=== PATIENT | female | born 1960 | race Caucasian/White ===

== ENCOUNTER 2016-08-01 05:58 | Emergency (ER) | payer BC ==
[2016-08-01] MEDS ORDERED: oxyCOD/ACETAMIN 5 MG/325 MG TABLET PO STA (07:08)
[2016-08-01] MEDS ORDERED: oxyCOD/ACETAMIN 5 MG/325 MG TABLET PO ONE (07:11)
--- NOTE | 2016-08-01 07:12 | CT Preliminary Report ---
Exam: CT Facial Bones W/O IMPRESSION: 1. No acute osseous abnormality. 2. Paranasal sinus disease without evidence of acute sinusitis. 3. Right periorbital soft tissue swelling. 4. Degenerative change of the visualized cervical spine. [facility] SITE ID: [id number]
--- NOTE | 2016-08-01 07:14 | CT Report ---
EXAM: CT MAXILLOFACIAL WITHOUT CONTRAST EXAM DATE: 08/01/2016 06:53 AM. CLINICAL HISTORY: Syncope, facial ecchymosis, swelling. COMPARISONS: None. TECHNIQUE: Thin-section axial images were acquired of the face without contrast. Post-processing: Cor onal and sagittal reformats. Other: None. In accordance with CT protocol optimization, one or more of the following dose reduction techniques w ere utilized for this exam: automated exposure control, adjustment of mA and/or KV based on patient s ize, or use of iterative reconstructive technique. FINDINGS: Bones: No fracture or bone lesion. Temporomandibular Joints: The temporomandibular joints are symmetric and normally located. Sinuses: Moderate mucosal thickening of the bilateral ethmoid and maxillary sinuses. Mild right and m oderate left sphenoid sinus mucosal thickening. No air-fluid levels. Other: Degenerative change of the visualized spine, most pronounced at C4-C5. 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 Right periorbital soft tissue swelling. Mastoid air cells ar e clear. IMPRESSION: 1. No acute osseous abnormality. 2. Paranasal sinus disease without evidence of acute sinusitis. 3. Right periorbital soft tissue swelling. 4. Degenerative change of the visualized cervical spine. [facility] Referring Provider Line: [phone] SITE ID: [id number]
[2016-08-01 07:18] VITALS: BP 140/80
--- NOTE | 2016-08-01 07:19 | ED Physician Documentation ---
PD HPI HEAD INJURY - Stated complaint Stated Complaint: FACIAL INJURIES FROM FALL - Chief complaint Chief Complaint: General - History obtained from History obtained from: Patient, Family - History of Present Illness Mechanism of head injury: Fell Where head injury occurred: Home Timing - onset: How many minutes ago (45) Location of injury: Right, Front Quality of pain: Pain, Aching Associated symptoms: LOC. No: Amnesia, Nausea / vomiting, Neck pain, Seizures Symptoms improve with: No: Rest Symptoms worsen with: Palpation, Movement Contributing factors: No: Anticoagulated, Intoxicated Similar symptoms before: Has not had sx before Recently seen: Not recently seen - Additional information Additional information: Patient is a 55 year old female with no significant past medical history who is presenting to the emergency department for syncope and facial injury. Patient states that she was lying in bed, and when she went to get up this morning she sat up quickly, passed out and fell unto her face. Family states that she was only out for less than a minute. Review of Systems Constitutional: denies: Fever, Myalgias Eyes: denies: Loss of vision, Photophobia Ears: denies: Ear pain, Drainage/discharge Nose: denies: Rhinorrhea / runny nose, Congestion Throat: denies: Dental pain / toothache, Sore throat Cardiac: denies: Chest pain / pressure Respiratory: denies: Cough GI: denies: Abdominal Pain, Nausea, Vomiting Skin: reports: Lesions, Abrasion (s) Musculoskeletal: denies: Neck pain, Back pain, Extremity pain, Joint pain Neurologic: reports: Syncope, Headache, Head injury, LOC. 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 - Present Medications Home Medications: Ambulatory Orders Medication Instructions Recorded Confirmed No Known Home Medications [No 08/01/16 08/01/16 Known Home Medications] - Allergies Allergies/Adverse Reactions: Allergies Allergy/AdvReac Type Severity Reaction Status Date / Time levofloxacin [From Levaquin] Allergy Edema Verified 08/01/16 06:09 Penicillins Allergy Rash Verified 08/01/16 06:09 Sulfa (Sulfonamide Allergy Rash Verified 08/01/16 06:09 Antibiotics) - Social History Does the pt smoke?: No Smoking Status: Never smoker Does the pt drink ETOH?: Yes Does the pt have substance abuse?: No - Immunizations Immunizations are current?: No Immunizations: TDAP >10years/unknown - POLST Patient has POLST: No PD ED PE NORMAL - Vitals Vital signs reviewed: Yes - General General: Alert and oriented X 3, No acute distress - HEENT HEENT: Atraumatic, PERRL - Neck Neck: Supple, no meningeal sign, No bony TTP, No JVD - Cardiac Cardiac: RRR, No murmur - Respiratory Respiratory: No respiratory distress - Abdomen Abdomen: Soft, Non tender, Non distended - Derm Derm: Normal color, Warm and dry, No rash - Extremities Extremities: No deformity, No tenderness to palpate, No edema - Neuro Neuro: Alert and oriented X 3, No motor deficit, No sensory deficit, Normal speech - Psych Psych: Normal mood, Normal affect PD ED PE EXPANDED - HEENT HEENT: Head injury (swelling over forehead worse in right supraorbital region) Results - Vitals Vitals: Vital Signs - 24 hr // 06:03 Temperature 36.2 C L Heart Rate 83 Respiratory 18 Rate Blood Pressure 144/106 H O2 Saturation 100 Oxygen O2 Source Room air - EKG (time done) 0611 Rate: Rate (enter#) (69) Rhythm: NSR [place]: Normal Intervals: Normal OK QRS: Normal Ischemia: Normal ST segments Compare to prior EKG: Old EKG unavailable - Rads (name of study) ct max face Radiology: Final report received (no acute fracture or dislocation) PD MEDICAL DECISION MAKING - ED course Complexity details: reviewed old records, reviewed results, re-evaluated patient , considered differential, d/w patient, d/w family ED course: Patient was seen and examined at bedside. ekg was performed and was within normal limits. Patient was sent for imaging. When patient returned the results were reviewed. there were no acute fractures or dislocations. Patient was 0 on the mar ryder syncope rules. Patient was given detailed discharge and return instructions. patient required no further work up and was stable for discharge with outpatient follow up. Departure - Departure Disposition: 01 Home, Self Care Clinical Impression: Vaso vagal episode, Hematoma and contusion Condition: Good Instructions: ED Hematoma, ED Syncope Vasovagal Follow-Up: primary,care provider [Other] - As Needed Comments: Your diagnostics today were within normal limits. there were no fractures or dislocations and your ekg was within normal limits. You can expect to be in more pain over the next few days. You can take motrin or tylenol as needed for aches and pains. You might develop some nausea and vomiting with the concussion. You should avoid any stimuli or vigorous activity for the next few days. You may return to the emergency department for change in mental status, change in vision, new worsening or uncontrollable symptoms. Forms: Activity restrictions
== END 2016-08-01 07:33 | disposition home or self-care (01) ==
LOC: ED 05:58
DX: R55 Syncope and collapse (principal); S00.83XA Contusion of other part of head, initial encounter; W06.XXXA Fall from bed, initial encounter; Y93.89 Activity, other specified; Y92.003 Bedroom of unspecified non-institutional (private) residence as the place of occurrence of the external cause
CPT/HCPCS: 70486; 93005; 93010; 99283; 99284; A9270